=== PATIENT | male | born 1960 ===

== ENCOUNTER 2023-01-28 05:27 | Day surgery (SDC) | payer OTHER ==
[~2023-01-28] VITALS: Ht 160 cm; Wt 95.3 kg
[~2023-01-28 05:27] MED LIST: ATORVASTATIN CA20 MG PO; INDUR PO; LOSARTAN-HCTZ1 EAC2 PO; LOVASA PO; PLAVIX75 MG PO; TOPROL XL25 M1 PO
[2023-01-28] MEDS ORDERED: COLACE100 MG PO (11:57)
[2023-01-28] MEDS ORDERED: NEURONTIN300 MG PO (11:57)
[2023-01-28] MEDS ORDERED: TRAM1TAB98 PO (11:57)
== END 2023-01-28 16:20 | disposition home or self-care (01) ==
LOC: CIR.AMB 05:27
PROVIDERS: ATTEND Surgery
DX: K60.3 Anal fistula (principal); K62.0 Anal polyp; K60.0 Acute anal fissure; K62.89 Other specified diseases of anus and rectum; Z20.822 Contact with and (suspected) exposure to COVID-19